=== PATIENT | female | born 1965 | race African-American/Black ===

== ENCOUNTER 2023-11-25 20:14 | Emergency (ER) | payer MEDICAID ==
[~2023-11-25] VITALS: Ht 170.2 cm; Wt 100.0 kg
[~2023-11-25 20:14] MED LIST: DILANTIN; HYDR-523 PO; PHEN100C4 PO; TRAM50TA3 PO
[2023-11-25 20:23] VITALS: BP 148/79; PULSE 100; RESP 14; TEMP 98.4; O2SAT 100
[2023-11-25] MEDS ORDERED: SODIUM CHLORIDE 0.9% 1,000 ML IV ONE (20:45)
== END 2023-11-25 20:38 | disposition left against medical advice (07) ==
LOC: ER 20:14
DX: R56.9 Unspecified convulsions (principal); Z53.21 Procedure and treatment not carried out due to patient leaving prior to being seen by health care provider
CPT/HCPCS: 99281; J7030